=== PATIENT | female | born 1965 | race Caucasian/White ===

== ENCOUNTER 2022-06-23 09:57 | Emergency (ER) | payer BC ==
[2022-06-23 10:04] VITALS: BP 137/78
--- NOTE | 2022-06-23 10:46 | ED Physician Documentation ---
History of Present Illness - Stated complaint Stated Complaint: RT JAW PX,SWELLING - Chief complaint Chief Complaint: General - History obtained from History obtained from: Patient - Additonal information Additional information: Patient is a 57-year-old with a history of hypothyroidism presenting for e valuation of tenderness to right jaw area for the past 1 week. She also noticed a bump on her right lower gumline. She denies any dental pain, known fevers. She is not diabetic. She denies headache, Trouble breathing or swallowing. Review of Systems Constitutional: denies: Fever Throat: denies: Dental pain / toothache Cardiac: denies: Chest pain / pressure Respiratory: denies: Dyspnea GI: denies: Abdominal Pain Neurologic: denies: Headache PD PAST MEDICAL HISTORY - Past Medical History Past Medical History: Yes Cardiovascular: None Respiratory: None Neuro: None Endocrine/Autoimmune: HyPOthyroidism GI: None [employer]: None : None HEENT: None Psych: None Musculoskeletal: None Derm: None - Past Surgical History Past Surgical History: Yes General: Bowel surgery /[employer]: Hysterectomy, Other - Present Medications Home Medications: Ambulatory Orders Medication Instructions Recorded Confirmed Levothyroxine Sodium 137 mcg PO DAILY 06/23/22 06/23/22 [Levothyroxine] cephALEXin [Keflex] 500 mg PO Q6H #28 cap 06/23/22 - Allergies Allergies/Adverse Reactions: Allergies Allergy/AdvReac Type Severity Reaction Status Date / Time Sulfa (Sulfonamide Allergy Hives Verified 06/23/22 10:01 Antibiotics) - Social History Does the pt smoke?: No Smoking Status: Never smoker Does the pt drink ETOH?: Yes Does the pt have substance abuse?: No - Immunizations Immunizations are current?: No Immunizations: Other immun not current PD ED PE NORMAL - General General: Alert and oriented X 3, No acute distress, Well developed/nourished - HEENT HEENT: Atraumatic, Moist mucous membranes, Pharynx benign, Dentition benign, Other (Mild erythema and swelling to right lower face, no fluctuance) - Neck Neck: Supple, no meningeal sign, No bony TTP - Cardiac Cardiac: RRR, No murmur - Respiratory Respiratory: No respiratory distress, Clear bilaterally - Neuro Neuro: Normal speech PD ED PE EXPANDED - HEENT HEENT Visual: 1 - swelling (firm pearly colored growth; no fluctuance or pain) Results - Vitals Vitals: Vital Signs - 24 hr 06/23/22 10:01 Temperature 36.7 C Heart Rate 73 Respiratory 16 Rate Blood Pressure 137/78 H O2 Saturation 99 Oxygen O2 Source Room air PD Medical Decision Making - ED course ED course: Patient presenting for evaluation of tenderness to right side of her face with abnormal growth noted on her gumline.The abnormality on her gumline is firm, pearly in appearance. There is no fluctuance or tenderness on palpation to suggest an abscess.She does have mild erythema and swelling to the right side of her face concerning for cellulitis. Get I do not see signs of an abscess. She is afebrile, well-appearing, stable vital signs with no signs of airway compromise. Discussed plan for antibiotics. Patient is advised on strict return precautions. She was also advised to follow-up with a dentist regarding The abnormality on her gumline. Departure - Departure Disposition: 01 Home, Self Care Clinical Impression: Facial cellulitis Condition: Stable Instructions: ED Cellulitis Facial Prescriptions: cephALEXin [Keflex] 500 mg PO Q6H #28 cap Comments: I noticed faint redness and swelling to the right side of your face that I am concerned is from a skin infection. I am starting you on an antibiotic called cephalexin. I have sent the prescription to [facility] in [place]. Please make sure to complete the course of the antibiotic. If you develop any worsening symptoms please consider return to the emergency department. I am unsure as to what the nodule is along the gumline. It does not appear to be an abscess that requires drainage. If needed I would recommend follow-up with a dentist. A couple of low cost options for dental care include: [facility] in [place], calls [phone] for an appointment Or [facility] in [place], call [phone] for an appointment. Discharge Date/Time: 06/23/22 11:03
== END 2022-06-23 11:03 | disposition home or self-care (01) ==
LOC: ED 09:57
DX: L03.211 Cellulitis of face (principal)
CPT/HCPCS: 99281; 99283